=== PATIENT | female | born 1970 | race American Indian/Alaskan Native ===

== ENCOUNTER 2018-05-12 23:10 | Inpatient (IN) | payer OTHER, SELFPAY ==
[2018-05-12 23:59] LABS: Basophils # (Auto) 0.1 K/mm3 (0.0-0.1); Basophils % (Auto) 1.2 % (0.0-1.8); Eosinophils # (Auto) 0.1 K/mm3 (0.0-0.4); Eosinophils % (Auto) 1.3 % (0.0-4.3); Hematocrit 41.7 % (30.3-42.9); Hemoglobin 13.5 gm/dl (10.1-14.3); Lymphocytes # (Auto) 1.9 K/mm3 (1.2-5.4); Lymphocytes % (Auto) 41.4 % (13.4-35.0); Mean Corpuscular HGB Conc 32 % (30-34); Mean Corpuscular Volume 85 fl (79-97); Monocytes # (Auto) 0.7 K/mm3 (0.0-0.8); Monocytes % (Auto) 14.3 % (0.0-7.3); Platelet Count 221 K/mm3 (140-440); Red Blood Count 4.89 M/mm3 (3.65-5.03); Red Cell Distribution Width 14.5 % (13.2-15.2)
[2018-05-13 00:13] LABS: Bilirubin,Urine NEG (Negative); Blood,Urine NEG (Negative); Color,Urine Yellow (Yellow); Mucus,Urine FEW /HPF; Protein,Urine <15 mg/dL mg/dL (Negative); Urobilinogen,Urine < 2.0 mg/dL (<2.0)
[2018-05-13 00:15] LABS: Alanine Aminotransferase 391 units/L (7-56); Albumin 4.4 g/dL (3.9-5); BUN/Creatinine Ratio 17; Blood Urea Nitrogen 10 mg/dL (7-17); Calcium 9.6 mg/dL (8.4-10.2); Hemolysis Index 34
--- NOTE | 2018-05-13 02:55 | Emergency Department Report ---
ED Abdominal Pain HPI - General Chief Complaint: Abdominal Pain Stated Complaint: ABDOMINAL, BACK PAIN Time Seen by Provider: 05/13/18 02:20 Source: patient, family Mode of arrival: Ambulatory Limitations: No Limitations - History of Present Illness Initial Comments: This is a 89-year-old female here reported that she is having a gallbladder attack. She does not have GI doctor. She is that she has some nausea and vomited 1 hour. Pain is located to her right upper quadrant and radiated to her right back. Pain is 6 out of 10 and crampy. Similar pain with gallbladder attacks. No alleviating or exacerbating factors. Denies any fever or chills, urinary burning, frequency or urgency. She says she saw her doctor and she was given anti-inflammatory and they called him pain medicine for her and she is not able to get in until today. I discussed the patient that narcotics are not never called . She has a history of hypertension and gallstones. MD Complaint: abdominal pain Onset/Timin -: days(s) Location: RUQ Radiation: back (right upper back) Migration to: no migration Severity: moderate Severity scale (0 -10): 6 Quality: cramping (colicky), sharp Consistency: constant Improves With: nothing Worsens With: nothing Context: other (history of gallstones) Associated Symptoms: nausea, vomiting. denies: diarrhea, fever, chills, constipation, dysuria, hematemesis, hematochezia, melena, hematuria, anorexia, syncope Treatments Prior to Arrival: other (anti-inflammatory) - Related Data LMP (females 10-50): other (N' patient) Previous Rx's Medication Instructions Recorded Last Taken Type Labetalol [Normodyne TAB] 200 mg PO BID #60 tablet 07/20/13 Unknown Rx Lisinopril/Hydrochlorothiazide 1 each PO QDAY #30 tablet 07/20/13 Unknown Rx [Zestoretic 10-12.5 mg] Allergies Allergy/AdvReac Type Severity Reaction Status Date / Time Penicillins Allergy Hives Verified 07/20/13 04:47 ED Review of Systems ROS: Stated complaint: ABDOMINAL, BACK PAIN Other details as noted in HPI Constitutional: denies: chills, fever ENT: denies: ear pain, throat pain, dental pain, epistaxis, congestion Respiratory: denies: cough, shortness of breath, wheezing Cardiovascular: denies: chest pain, palpitations, dyspnea on exertion, edema, syncope Gastrointestinal: abdominal pain, nausea, vomiting. denies: diarrhea, constipation, hematemesis, melena, hematochezia Genitourinary: denies: urgency Musculoskeletal: back pain. denies: joint swelling, arthralgia, myalgia Skin: denies: rash Neurological: denies: headache, weakness, numbness, paresthesias, confusion, abnormal gait, vertigo ED Past Medical Hx - Past Medical History Previous Medical History?: Yes Hx Hypertension: Yes Additional medical history: gallstones - Surgical History Past Surgical History?: Yes Additional Surgical History: c- section - Family History Family history: hypertension - Social History Smoking Status: Never Smoker Substance Use Type: None - Medications Home Medications: Home Medications Medication Instructions Recorded Confirmed Last Taken Type Labetalol [Normodyne TAB] 200 mg PO BID #60 tablet 07/20/13 Unknown Rx Lisinopril/Hydrochlorothiazide 1 each PO QDAY #30 tablet 07/20/13 Unknown Rx [Zestoretic 10-12.5 mg] ED Physical Exam - General Limitations: No Limitations General appearance: alert, in no apparent distress - Head Head exam: Present: atraumatic, normocephalic, normal inspection - Eye Eye exam: Present: normal appearance, PERRL, EOMI Pupils: Present: normal accommodation - ENT ENT exam: Present: normal exam, normal orophraynx, mucous membranes moist - Neck Neck exam: Present: normal inspection, full ROM. Absent: tenderness, lymphadenopathy - Respiratory Respiratory exam: Present: normal lung sounds bilaterally. Absent: respiratory distress, chest wall tenderness - Cardiovascular Cardiovascular Exam: Present: regular rate, normal rhythm, normal heart sounds - GI/Abdominal GI/Abdominal exam: Present: soft, tenderness (tender to palpate a right upper quadrant), guarding, normal bowel sounds. Absent: distended, rebound, rigid, organomegaly, mass, bruit, pulsatile mass, hernia - Extremities Exam Extremities exam: Present: normal inspection, full ROM, normal capillary refill, other (No cce. + 2 pulses in all extremities, no neurovascular compromise). Absent: tenderness, pedal edema, joint swelling, calf tenderness - Back Exam Back exam: Present: normal inspection, full ROM, other (ambulates without any difficulties). Absent: tenderness, CVA tenderness (R), CVA tenderness (L), muscle spasm, paraspinal tenderness, vertebral tenderness, rash noted - Neurological Exam Neurological exam: Present: alert, oriented X3, normal gait, reflexes normal. Absent: motor sensory deficit - Psychiatric Psychiatric exam: Present: normal affect, anxious - Skin Skin exam: Present: warm, dry, intact, normal color. Absent: rash ED Course Vital Signs 05/12/18 05/13/18 05/13/18 23:32 04:18 04:57 Temperature 98.3 F 98.0 F Pulse Rate 87 88 97 H Respiratory 20 18 17 Rate Blood Pressure 179/123 Blood Pressure 159/113 187/107 [Left] O2 Sat by Pulse 100 99 98 Oximetry Vital Signs 05/12/18 05/13/18 23:32 04:18 Temperature 98.3 F Pulse Rate 87 88 Respiratory 20 18 Rate Blood Pressure 179/123 Blood Pressure 159/113 [Left] O2 Sat by Pulse 100 99 Oximetry Vital Signs 05/12/18 05/13/18 05/13/18 23:32 04:18 04:57 Temperature 98.3 F 98.0 F Pulse Rate 87 88 97 H Respiratory 20 18 17 Rate Blood Pressure 179/123 Blood Pressure 159/113 187/107 [Left] O2 Sat by Pulse 100 99 98 Oximetry - Reevaluation(s) Reevaluation #1: 05/13/18 04:18 Patient received Toradol 30 mg IV, Zofran 8 mg IV and 1 L of normal saline. She refused the morphine 4 mg IV because she said is still strong and a usually knocks her out. We agree on Ultram 50 mg by mouth which she will receive. Still awaiting in ultrasound results. Patient blood pressure is elevated at 156/113 and when she came in it was also elevated. Patient is on Cardizem and she said doctor Yari added losartan which she has not started as yet. Patient will receive hydralazine and retracted blood pressure. Reevaluation #2: 05/13/18 04:44 Dr. Mckenna Guevara and awaiting call back regarding patient ultrasound results. She has multiple stones in her gallbladder with cholecystitis. Spoke with patient in detail regarding ultrasound results and her laboratory results and possibility of her having surgery and be admitted. She is to be nothing by mouth Reevaluation #3: 05/13/18 04:[address] Andres and he wants patient to be admitted to hospitalist and he will see patient later today. Reevaluation #4: 05/13/18 04:[address] Drake who is the hospitalist and he will admit patient and patient to be seen by Dr. Andres Reevaluation #5: 05/13/18 05:28 Blood pressure is 187/107 and other vital signs are stable. Patient is very a nxious about his health and diagnosis. She said they usually give her some Ativan by mouth. Patient ordered Ativan 1 mg by mouth for anxiety. Her pain is better and she is awaiting admission to floor. ED Medical Decision Making - Lab Data Result diagrams: 05/12/18 23:40 05/12/18 23:40 Lab Results 05/12/18 05/12/18 05/12/18 Range/Units 23:40 23:40 23:40 WBC 4.6 (4.5-11.0) K/mm3 RBC 4.89 (3.65-5.03) M/mm3 Hgb 13.5 (10.1-14.3) gm/dl Hct 41.7 (30.3-42.9) % MCV 85 (79-97) fl MCH 28 (28-32) pg MCHC 32 (30-34) % RDW 14.5 (13.2-15.2) % Plt Count 221 (140-440) K/mm3 Lymph % (Auto) 41.4 H (13.4-35.0) % [place] % (Auto) 14.3 H (0.0-7.3) % Eos % (Auto) 1.3 (0.0-4.3) % Baso % (Auto) 1.2 (0.0-1.8) % Lymph # 1.9 (1.2-5.4) K/mm3 [place] # 0.7 (0.0-0.8) K/mm3 Eos # 0.1 (0.0-0.4) K/mm3 Baso # 0.1 (0.0-0.1) K/mm3 Seg Neutrophils % 41.8 (40.0-70.0) % Seg Neutrophils # 1.9 (1.8-7.7) K/mm3 Sodium 134 L (137-145) mmol/L Potassium 3.7 (3.6-5.0) mmol/L Chloride 95.9 L (98-107) mmol/L Carbon Dioxide 24 (22-30) mmol/L Anion Gap 18 mmol/L BUN 10 (7-17) mg/dL Creatinine 0.6 L (0.7-1.2) mg/dL Estimated GFR > 60 ml/min BUN/Creatinine Ratio 17 % Glucose 101 H (65-100) mg/dL Calcium 9.6 (8.4-10.2) mg/dL Total Bilirubin 5.10 H (0.1-1.2) mg/dL AST 298 H (5-40) units/L ALT 391 H (7-56) units/L Alkaline Phosphatase 250 H (35-129) units/L Total Protein 8.1 (6.3-8.2) g/dL Albumin 4.4 (3.9-5) g/dL Albumin/Globulin Ratio 1.2 % Lipase (13-60) units/L HCG, Qual Negative (Negative) Urine Color (Yellow) Urine Turbidity (Clear) Urine pH (5.0-7.0) Ur Specific [place] (1.003-1.030) Urine Protein (Negative) mg/dL Urine Glucose (UA) (Negative) mg/dL Urine Ketones (Negative) mg/dL Urine Blood (Negative) Urine Nitrite (Negative) Urine Bilirubin (Negative) Urine Urobilinogen (<2.0) mg/dL Ur Leukocyte Esterase (Negative) Urine WBC (Auto) (0.0-6.0) /HPF Urine RBC (Auto) (0.0-6.0) /HPF U Epithel Cells (Auto) (0-13.0) /HPF Urine Mucus /HPF 05/12/18 05/13/18 Range/Units 23:49 03:00 WBC (4.5-11.0) K/mm3 RBC (3.65-5.03) M/mm3 Hgb (10.1-14.3) gm/dl Hct (30.3-42.9) % MCV (79-97) fl MCH (28-32) pg MCHC (30-34) % RDW (13.2-15.2) % Plt Count (140-440) K/mm3 Lymph % (Auto) (13.4-35.0) % [place] % (Auto) (0.0-7.3) % Eos % (Auto) (0.0-4.3) % Baso % (Auto) (0.0-1.8) % Lymph # (1.2-5.4) K/mm3 [place] # (0.0-0.8) K/mm3 Eos # (0.0-0.4) K/mm3 Baso # (0.0-0.1) K/mm3 Seg Neutrophils % (40.0-70.0) % Seg Neutrophils # (1.8-7.7) K/mm3 Sodium (137-145) mmol/L Potassium (3.6-5.0) mmol/L Chloride (98-107) mmol/L Carbon Dioxide (22-30) mmol/L Anion Gap mmol/L BUN (7-17) mg/dL Creatinine (0.7-1.2) mg/dL Estimated GFR ml/min BUN/Creatinine Ratio % Glucose (65-100) mg/dL Calcium (8.4-10.2) mg/dL Total Bilirubin (0.1-1.2) mg/dL AST (5-40) units/L ALT (7-56) units/L Alkaline Phosphatase (35-129) units/L Total Protein (6.3-8.2) g/dL Albumin (3.9-5) g/dL Albumin/Globulin Ratio % Lipase 21 (13-60) units/L HCG, Qual (Negative) Urine Color Yellow (Yellow) Urine Turbidity Clear (Clear) Urine pH 6.0 (5.0-7.0) Ur Specific [place] 1.002 L (1.003-1.030) Urine Protein <15 mg/dl (Negative) mg/dL Urine Glucose (UA) Neg (Negative) mg/dL Urine Ketones Neg (Negative) mg/dL Urine Blood Neg (Negative) Urine Nitrite Neg (Negative) Urine Bilirubin Neg (Negative) Urine Urobilinogen < 2.0 (<2.0) mg/dL Ur Leukocyte Esterase Neg (Negative) Urine WBC (Auto) 1.0 (0.0-6.0) /HPF Urine RBC (Auto) 1.0 (0.0-6.0) /HPF U Epithel Cells (Auto) 2.0 (0-13.0) /HPF Urine Mucus Few /HPF Blood cultures pending - Radiology Data Radiology results: report reviewed had right upper quadrant limited abdominal ultrasound which was dictated by radiologist and report reviewed by myself. Please see details below. Findings [facility] [address] [place] [address] Ultrasound Report Signed Patient: DREAD RODRIGUEZ MR#: [id number] : 1970 Acct:[id number] Age/Sex: 47 / F ADM Date: 05/12/18 Loc: ED Attending Dr: Ordering Physician: SELWYN QUIROZ Date of Service: 05/13/18 Procedure(s): US abdomen limited Accession Number(s): [id number] cc: SELWYN QUIROZ FINAL REPORT EXAM: US ABDOMEN LIMITED HISTORY: right upper quadrant abdominal pain COMPARISONS: None FINDINGS: Grayscale and color Doppler ultrasound evaluation of the right upper abdomen Liver is normal in size and contour. Hepatic parenchymal echogenicity is diffusely increased. No parenchymal lesion identified. No intra or extrahepatic biliary ductal dilatation. The common duct measures approximately 8 millimeters in caliber. The gallbladder is distended and contains multiple echogenic shadowing stones. Gallbladder wall measures approximately 3 millimeters in thickness. No definite pericholecystic edema. Imaged portion of the pancreatic head is sonographically unremarkable. The remainder of the pancreas is not well seen secondary to overlying bowel gas. Imaged portions of the aorta and inferior vena cava are unremarkable. No abdominal ascites or free fluid in Fernandes's pouch. The right kidney measures up to 9.8 cm in length and is without hydronephrosis or echogenic shadowing foci to suggest nephrolithiasis. IMPRESSION: Distended gallbladder is full of stones with equivocal wall thickening, suggestive of cholecystitis. If patient's clinical picture is equivocal, consider nuclear medicine hepatobiliary scan for more specific evaluation. Hepatic steatosis. Transcribed By: MB Dictated By: IMELDA VILLANUEVA MD Electronically Authenticated By: IMELDA VILLANUEVA MD Signed Date/Time: 05/13/18405 DD/ 7 TD/TT: 05/13/18407 - Medical Decision Making This is a 47-year-old female here report that she has gallstones and she has attacks and she she has evident attack today. Physician's evidence of nausea and vomiting. Patient to the popliteal right upper quadrant extending to the epigastric area and also reports that pain is irritating to her upper back on the right side. Patient was started on IV fluid and given Zofran 8 mg IV, Toradol 30 mg IV and she refused morphine because she said it was too strong for. Later she agreed upon taken tramadol. Her blood pressure is also elevated 2 while in emergency room and patient sees Dr. Bain and blood pressure medication includes Cardizem and losartan was added today per patient. Patient was given hydralazine 10 mg IV for elevated blood pressure. Patient blood pressure still elevated and she is very anxious. Patient and will be given Ativan 1 mg by mouth and will recheck blood pressure and managed appropriately. - Differential Diagnosis gallbladder disease, pancreatitis, UTI, liver disease, appendicitis Critical care attestation.: If time is entered above; I have spent that time in minutes in the direct care of this critically ill patient, excluding procedure time. ED Disposition Clinical Impression: Renal colic, Anxiety about health, Elevated blood pressure reading with diagno sis of hypertension Cholecystitis with cholelithiasis Qualifiers: Cholelithiasis location: gallbladder Cholecystitis acuity: unspecified acuity Biliary obstruction: without biliary obstruction Qualified Code(s): K80.10 - Calculus of gallbladder with chronic cholecystitis without obstruction Disposition: -09 OP ADMIT IP TO THIS HOSP Is pt being admited?: Yes Does the pt Need Aspirin: No Condition: Stable Instructions: Hypertension (ED) Referrals: FRANCINE ENCINAS MD [Primary Care Provider] - 3-5 Days
[2018-05-13] MEDS ORDERED: NACL 0.9% 1000 ML 1,000 ML IV ONE (03:01)
[2018-05-13] MEDS ORDERED: ZOFRAN IV ONE (03:01)
[2018-05-13] MEDS ORDERED: BENADRYL IV ONE (03:01)
[2018-05-13] MEDS ORDERED: TORADOL IVP ONE (03:01)
[2018-05-13] MEDS ORDERED: MORPHINE IV ONE (03:06)
--- NOTE | 2018-05-13 04:06 | Ultrasound Report ---
FINAL REPORT EXAM: US ABDOMEN LIMITED HISTORY: right upper quadrant abdominal pain COMPARISONS: None FINDINGS: Grayscale and color Doppler ultrasound evaluation of the right upper abdomen Liver is normal in size and contour. Hepatic parenchymal echogenicity is diffusely increased. No pare nchymal lesion identified. No intra or extrahepatic biliary ductal dilatation. The common duct measur es approximately 8 millimeters in caliber. The gallbladder is distended and contains multiple echogenic shadowing stones. Gallbladder wall measu res approximately 3 millimeters in thickness. No definite pericholecystic edema. Imaged portion of the pancreatic head is sonographically unremarkable. The remainder of the pancreas is not well seen secondary to overlying bowel gas. Imaged portions of the aorta and inferior vena cav a are unremarkable. No abdominal ascites or free fluid in Fernandes's pouch. The right kidney measures up to 9.8 cm in leilani gth and is without hydronephrosis or echogenic shadowing foci to suggest nephrolithiasis. IMPRESSION: Distended gallbladder is full of stones with equivocal wall thickening, suggestive of cholecystitis. If patient's clinical picture is equivocal, consider nuclear medicine hepatobiliary scan for more spe cific evaluation. Hepatic steatosis.
[2018-05-13] MEDS ORDERED: ULTRAM PO ONE (04:20)
[2018-05-13] MEDS ORDERED: APRESOLINE IV ONE (04:20)
[2018-05-13] MEDS ORDERED: LEVAQUIN 750MG/150ML 750 MG/150 ML BAG IV ONE (04:46)
[2018-05-13] MEDS ORDERED: ATIVAN PO ONE (05:29)
[2018-05-13] MEDS ORDERED: DILAUDID IV PRN (05:55)
[2018-05-13] MEDS ORDERED: ZOFRAN IV PRN (05:55)
[2018-05-13] MEDS ORDERED: TYLENOL PR PRN (06:05)
[2018-05-13] MEDS ORDERED: APRESOLINE IV PRN (06:09)
[2018-05-13] MEDS ORDERED: NACL 0.9% 1000 ML 1,000 ML IV SCH (07:00)
--- NOTE | 2018-05-13 07:00 | History and Physical Report ---
CHIEF COMPLAINT: Abdominal pain. HISTORY OF PRESENT ILLNESS: The patient is a 47-year-old who says she has history of gallstones going on for some time that started having abdominal pain that started about 2 days ago associated with nausea and vomiting. Pain is located in the right upper quadrant abdominal area and radiates to the right side on the back. The pain is about 6/10. The patient denies history of fever and chills. Denied history of any urinary symptoms, presented for evaluation. PAST MEDICAL HISTORY: Pertinent for hypertension, gallstones, and also anxiety disorder. PAST SURGICAL HISTORY: Pertinent for C-sections. FAMILY HISTORY: Pertinent for hypertension. SOCIAL HISTORY: The patient does not smoke, does not drink alcohol, and does not use illicit drugs. MEDICATIONS: The patient is on labetalol 200 mg by mouth twice daily, Zestoretic 10/12.5 mg 1 by mouth every day. ALLERGIES: THE PATIENT IS ALLERGIC TO PENICILLIN. REVIEW OF SYSTEMS: CONSTITUTIONAL: There is no fever, no chills, no diaphoresis. HEENT: There is no headache or sore throat. CARDIOVASCULAR SYSTEM: There is no chest pain or orthopnea. RESPIRATORY SYSTEM: There is no shortness of breath or cough. GASTROINTESTINAL SYSTEM: Abdominal pain present. Nausea and vomiting present. No diarrhea, no constipation. NEUROLOGICAL SYSTEM: There is no numbness, no dizziness, no altered mental status. MUSCULOSKELETAL SYSTEM: There is no joint pain or swelling. DERMATOLOGICAL SYSTEM: There is no skin rash or itching. GENITOURINARY SYSTEM: There is no dysuria, hematuria, or flank pain. Rest of system review is normal. PHYSICAL EXAMINATION: GENERAL: At the time of exam, the patient was found to be alert, oriented x 3, and not in acute distress. VITAL SIGNS: At the initial time of presentation show temperature of 98.3 degrees Fahrenheit, pulse of 87, respirations 20, blood pressure 179/123, O2 sat of 100% on room air. HEENT: Showed pupils to be equal, round, and reactive to light and accommodating. Extraocular muscles are intact. NECK: Supple with no JVD or carotid bruits. CARDIOVASCULAR SYSTEM: Showed normal first and second heart sounds with no gallops or murmur. RESPIRATORY SYSTEM: Show good air entry on both sides of the lungs with no abnormal breath sounds. GASTROINTESTINAL SYSTEM: Show abdomen to be full, soft with mild tenderness in the right upper quadrant area with no rigidity, no rebound tenderness. No organomegaly was elicited. NEUROLOGIC SYSTEM: Show no focal deficit. MUSCULOSKELETAL SYSTEM: Show no joint swelling or tenderness. DERMATOLOGICAL SYSTEM: Show no skin rash. GENITOURINARY SYSTEM: Show no costovertebral jarrett tenderness. PERTINENT LABORATORY DATA AND IMAGING STUDIES: The patient had abdominal ultrasound done that shows gallstone with evidence suggestive of cholecystitis. Lab results: The patient has CBC done with normal white count, normal hemoglobin, and normal hematocrit with CBC differential showing elevated lymphocyte count of 41.4 and 14.3. The patient's chemistry show low sodium level of 134 with low chloride level of 95.9. The patient's liver transaminases show high AST of 298 with high ALT of 391 and alkaline phosphatase is high with a value of 250. The patient's urinalysis show unremarkable result. DIAGNOSIS: Gallstone cholecystitis. PLAN OF ACTION: 1. The patient will be admitted to medical surgical addison. 2. The patient will continue IV Levaquin 750 mg daily. 3. The patient will continue general surgical consult with Dr. Anderson Andres for management of gallstones cholecystitis. 4. The patient will be n.p.o. until reviewed by the surgeon. 5. The patient will be on IV Dilaudid 0.5 mg every 4 hours as needed for pain and IV Zofran 4 mg every 8 hours for nausea and vomiting. 6. The patient will be on IV hydralazine 20 mg every 4 hours as needed for blood pressure of 160/90 or more. 7. The patient will be on Tylenol 650 mg by rectum every 4 hours for fever and headache and will be on IV normal saline at 125 mL an hour. JOB# [id number] OCN/NTS
--- NOTE | 2018-05-13 07:31 | Progress Note ---
Assessment and Plan Assessment and plan: Patient is a 47 yo woman with a history of hypertension who presented to [facility] ED with abdominal pains. She was found to have cholecysitis on Abdominal US * US Abdomen Limited RUQ IMPRESSION: Distended gallbladder is full of stones with equivocal wall thickening, suggestive of cholecystitis. If patient's clinical picture is equivocal, consider nuclear medicine hepatobiliary scan for more specific evaluation. Hepatic steatosis. -Acute cholecystitis: npo, ivf, iv abx and Gen Surgery consulted -Obesity, bmi 33: Lifestyle modification after this illness -Fatty liver, most likey related to obesity: counseling and education -Hyponatremia with dehydration: treat with ivf, repeat bmp in am -DVT prophylaxis: added sq heparin tomorrow Looking back at previous medical records, I saw Dr. Greenberg name so I asked patient who is her PCP and she confirmed Dr. Greenberg, who admits his own patient. I reached out to him and he wants care to be transferred. prolonged inpatient services 31 minutes History Interval history: Patient was seen and examined. Follow-up on current diagnosis of abd pains. Overnight uneventful. Patient denies any chest pain, shortness breath, or severe headaches. Imaging, nursing note, chart, labs and old chart reviewed. Discussed with patient. Hospitalist Physical - Physical exam Narrative exam: Gen: WDWN, NAD, Awake, Alert, Orientated x 3,bmi 33.1 HEENT: NCAT, EOMI, PERRL, OP Clear Neck: supple, no adenopathy, no thyromegaly, no JVD CVS/Heart: RRR, normal S1S2, pulses present bilaterally Chest/Lungs: CTA B, Symmetrical chest expansion, good air entry bilaterally GI/Abdomen: soft, ruq tender, good bowel sounds, no guarding or rebound /Bladder: no suprapubic tenderness, no CVA or paraspinal tenderness Extermity/Skin: no c/c/e, no obvious rash MSK: FROM x 4 Neuro: CN 2-12 grossly intact, no new focal deficits Psych: calm - Constitutional Vitals: Temp Pulse Resp BP Pulse Ox 98.7 F 106 H 17 153/95 100 05/13/18 06:37 05/13/18 06:37 05/13/18 06:37 05/13/18 06:37 05/13/18 06:37 Results - Labs CBC & Chem 7: 05/12/18 23:40 05/12/18 23:40 Labs: Laboratory Last Values WBC 4.6 K/mm3 (4.5-11.0) 05/12/18 23:40 RBC 4.89 M/mm3 (3.65-5.03) 05/12/18 23:40 Hgb 13.5 gm/dl (10.1-14.3) 05/12/18 23:40 Hct 41.7 % (30.3-42.9) 05/12/18 23:40 MCV 85 fl (79-97) 05/12/18 23:40 MCH 28 pg (28-32) 05/12/18 23:40 MCHC 32 % (30-34) 05/12/18 23:40 RDW 14.5 % (13.2-15.2) 05/12/18 23:40 Plt Count 221 K/mm3 (140-440) 05/12/18 23:40 Lymph % (Auto) 41.4 % (13.4-35.0) H 05/12/18 23:40 [place] % (Auto) 14.3 % (0.0-7.3) H 05/12/18 23:40 Eos % (Auto) 1.3 % (0.0-4.3) 05/12/18 23:40 Baso % (Auto) 1.2 % (0.0-1.8) 05/12/18 23:40 Lymph # 1.9 K/mm3 (1.2-5.4) 05/12/18 23:40 [place] # 0.7 K/mm3 (0.0-0.8) 05/12/18 23:40 Eos # 0.1 K/mm3 (0.0-0.4) 05/12/18 23:40 Baso # 0.1 K/mm3 (0.0-0.1) 05/12/18 23:40 Seg Neutrophils % 41.8 % (40.0-70.0) 05/12/18 23:40 Seg Neutrophils # 1.9 K/mm3 (1.8-7.7) 05/12/18 23:40 Sodium 134 mmol/L (137-145) L 05/12/18 23:40 Potassium 3.7 mmol/L (3.6-5.0) 05/12/18 23:40 Chloride 95.9 mmol/L (98-107) L 05/12/18 23:40 Carbon Dioxide 24 mmol/L (22-30) 05/12/18 23:40 Anion Gap 18 mmol/L 05/12/18 23:40 BUN 10 mg/dL (7-17) 05/12/18 23:40 Creatinine 0.6 mg/dL (0.7-1.2) L 05/12/18 23:40 Estimated GFR > 60 ml/min 05/12/18 23:40 BUN/Creatinine Ratio 17 % 05/12/18 23:40 Glucose 101 mg/dL (65-100) H 05/12/18 23:40 Calcium 9.6 mg/dL (8.4-10.2) 05/12/18 23:40 Total Bilirubin 5.10 mg/dL (0.1-1.2) H 05/12/18 23:40 AST 298 units/L (5-40) H 05/12/18 23:40 ALT 391 units/L (7-56) H 05/12/18 23:40 Alkaline Phosphatase 250 units/L (35-129) H 05/12/18 23:40 Total Protein 8.1 g/dL (6.3-8.2) 05/12/18 23:40 Albumin 4.4 g/dL (3.9-5) 05/12/18 23:40 Albumin/Globulin Ratio 1.2 % 05/12/18 23:40 Lipase 21 units/L (13-60) 05/13/18 03:00 HCG, Qual Negative (Negative) 05/12/18 23:40 Urine Color Yellow (Yellow) 05/12/18 23:49 Urine Turbidity Clear (Clear) 05/12/18 23:49 Urine pH 6.0 (5.0-7.0) 05/12/18 23:49 Ur Specific [place] 1.002 (1.003-1.030) L 05/12/18 23:49 Urine Protein <15 mg/dl mg/dL (Negative) 05/12/18 23:49 Urine Glucose (UA) Neg mg/dL (Negative) 05/12/18 23:49 Urine Ketones Neg mg/dL (Negative) 05/12/18 23:49 Urine Blood Neg (Negative) 05/12/18 23:49 Urine Nitrite Neg (Negative) 05/12/18 23:49 Urine Bilirubin Neg (Negative) 05/12/18 23:49 Urine Urobilinogen < 2.0 mg/dL (<2.0) 05/12/18 23:49 Ur Leukocyte Esterase Neg (Negative) 05/12/18 23:49 Urine WBC (Auto) 1.0 /HPF (0.0-6.0) 05/12/18 23:49 Urine RBC (Auto) 1.0 /HPF (0.0-6.0) 05/12/18 23:49 U Epithel Cells (Auto) 2.0 /HPF (0-13.0) 05/12/18 23:49 Urine Mucus Few /HPF 05/12/18 23:49
--- NOTE | 2018-05-13 09:07 | Event Note ---
Date: 05/13/18 Was informed of my patient who was admitted for Acute Cholecyctitis. Will be glad to take over care.
--- NOTE | 2018-05-13 10:28 | Consultation ---
History of Present Illness Consult date: 05/13/18 Reason for consult: abdominal pain Requesting physician: VIVIAN SHARPE Chief complaint: severe RUQ pain - History of present illness History of present illness: 47yo F with acute RUQ pain presented to the emergency room last night. Pain began after a meal and radiated right side to the back. Positive nausea. No fevers or chills. This has happened before. She is known to have gallstones. General surgery was consult for possible cholecystitis. Patient reports now that pain is completely resolved. There is no nausea or vomiting. She is interested in having her gallbladder removed. Past History Past Medical History: hypertension, other (anxiety) Past Surgical History: (no complications) Social history: denies: smoking, alcohol abuse Family history: no significant family history Medications and Allergies Allergies Allergy/AdvReac Type Severity Reaction Status Date / Time Penicillins Allergy Hives Verified 07/20/13 04:47 Home Medications Medication Instructions Recorded Confirmed Last Taken Type dilTIAZem 60 mg PO BID 05/13/18 05/13/18 05/12/18 23:30 History 60 Active Meds: Active Medications Acetaminophen (Tylenol) 650 mg ID Q4H PRN PRN Reason: Fever >101 Heparin Sodium (Porcine) (Heparin) 5,000 unit SUB-Q Q12HR [facility] Hydralazine HCl (Apresoline) 20 mg IV Q4H PRN PRN Reason: Blood Pressure Hydromorphone HCl (Dilaudid) 0.5 mg IV Q4HR PRN PRN Reason: Pain, Moderate (4-6) Sodium Chloride (Nacl 0.9% 1000 Ml) 1,000 mls @ 125 mls/hr IV DIRECT SOM Ondansetron HCl (Zofran) 4 mg IV Q8H PRN PRN Reason: Nausea And Vomiting Review of Systems - Constitutional no fever, no chills, no chronic pain - Cardiovascular no chest pain, no shortness of breath - Respiratory no cough - Gastrointestinal abdominal pain, nausea, dyspepsia/bloating (this happens 1 week before her menstrual period), no vomiting, no diarrhea, no constipation, no change in bowel habits, no hematemesis, no coffee ground emesis, no BRBPR, no melena, no hematochezia, no heartburn, no indigestion - Genitourinary Genitourinary: no pelvic pain, no dysuria - Muskuloskeletal no low back pain - Integumentary no pruritis, no jaundice Exam Vital Signs Temp Pulse Resp BP Pulse Ox 98.3 F 87 20 179/123 100 05/12/18 23:32 05/12/18 23:32 05/12/18 23:32 05/12/18 23:32 05/12/18 23:32 - General physical appearance Positive: no distress, no pain, other (pleasant. appears healthy) - Eyes Positive: normal occular movement. Negative: icteric - Respiratory Positive: normal expansion, normal respiratory effort, clear to auscultation - Cardiovascular Rhythm: regular - Abdomen Abdomen: Present: soft, bowel sounds hypoactive, distended (mild). Absent: tender, masses, rebound, guarding, rigid, wound - Integumentary no rash, no growths, no abnormal pigmentation - Neurologic Neurologic: alert and oriented to time, place and person, motor strength and sensation are grossly intact - Psychiatric Psychiatric: appropriate mood/affect, intact judgment & insight Results - Labs 05/12/18 23:40 05/12/18 23:40 Abnormal lab results 05/12/18 05/12/18 05/12/18 Range/Units 23:40 23:40 23:49 Lymph % (Auto) 41.4 H (13.4-35.0) % [place] % (Auto) 14.3 H (0.0-7.3) % Sodium 134 L (137-145) mmol/L Chloride 95.9 L (98-107) mmol/L Creatinine 0.6 L (0.7-1.2) mg/dL Glucose 101 H (65-100) mg/dL Total Bilirubin 5.10 H (0.1-1.2) mg/dL AST 298 H (5-40) units/L ALT 391 H (7-56) units/L Alkaline Phosphatase 250 H (35-129) units/L Ur Specific [place] 1.002 L (1.003-1.030) Diabetes panel 05/12/18 Range/Units 23:40 Sodium 134 L (137-145) mmol/L Potassium 3.7 (3.6-5.0) mmol/L Chloride 95.9 L (98-107) mmol/L Carbon Dioxide 24 (22-30) mmol/L BUN 10 (7-17) mg/dL Creatinine 0.6 L (0.7-1.2) mg/dL Glucose 101 H (65-100) mg/dL Calcium 9.6 (8.4-10.2) mg/dL AST 298 H (5-40) units/L ALT 391 H (7-56) units/L Alkaline Phosphatase 250 H (35-129) units/L Total Protein 8.1 (6.3-8.2) g/dL Albumin 4.4 (3.9-5) g/dL Calcium panel 05/12/18 Range/Units 23:40 Calcium 9.6 (8.4-10.2) mg/dL Albumin 4.4 (3.9-5) g/dL Pituitary panel 05/12/18 Range/Units 23:40 Sodium 134 L (137-145) mmol/L Potassium 3.7 (3.6-5.0) mmol/L Chloride 95.9 L (98-107) mmol/L Carbon Dioxide 24 (22-30) mmol/L BUN 10 (7-17) mg/dL Creatinine 0.6 L (0.7-1.2) mg/dL Glucose 101 H (65-100) mg/dL Calcium 9.6 (8.4-10.2) mg/dL Adrenal panel 05/12/18 Range/Units 23:40 Sodium 134 L (137-145) mmol/L Potassium 3.7 (3.6-5.0) mmol/L Chloride 95.9 L (98-107) mmol/L Carbon Dioxide 24 (22-30) mmol/L BUN 10 (7-17) mg/dL Creatinine 0.6 L (0.7-1.2) mg/dL Glucose 101 H (65-100) mg/dL Calcium 9.6 (8.4-10.2) mg/dL Total Bilirubin 5.10 H (0.1-1.2) mg/dL AST 298 H (5-40) units/L ALT 391 H (7-56) units/L Alkaline Phosphatase 250 H (35-129) units/L Total Protein 8.1 (6.3-8.2) g/dL Albumin 4.4 (3.9-5) g/dL - Imaging US - abdomen: report reviewed, image reviewed Assessment and Plan - Patient Problems (1) Choledocholithiasis with obstruction Current Visit: Yes Status: Acute Qualifiers: Cholecystitis presence: without cholecystitis Qualified Code(s): K80.51 - C alculus of bile duct without cholangitis or cholecystitis with obstruction Plan to address problem: Pt stable. Based on her history, exam, ultrasound findings, and labs, I do not think she had cholecystitis. I think she had a common duct obstruction that has cleared as she is now asymptomatic. This appears to be the same thing that has happened to her in the past. We will repeat the LFTs this morning to confirm that they are coming down with the presumed passage of a stone. If that is the case, then she would like to arrange for an outpatient cholecystectomy. I think that is reasonable. I will bring back the consent form and patient information on laparoscopic cholecystectomy after her lab results are available. All questions were answered. She was appreciative. I will start her on a liquid diet as well. Please call with questions. time=45min
[2018-05-13 12:16] LABS: Albumin 4.3 g/dL (3.9-5); Bilirubin,Direct 2.8 mg/dL (0-0.2)
--- NOTE | 2018-05-13 13:52 | Event Note ---
Date: 05/13/18 Pt would like to go home. Her symptoms have resolved. The T.bili is lower. I expect that will continue as I believe the stone has passed. Discussed with Dr. Greenberg. He was ok with this plan. He will discharge the patient. We will go ahead and schedule her for an out-pt lap paola with IOC. Consent has been obtained.
[2018-05-13] MEDS: CARDIZEM CD PO SCH (19:00)
[2018-05-13] MEDS: COZAAR PO SCH (19:14)
[2018-05-14] MEDS ORDERED: NORMODYNE IV ONE ×2 (00:56→06:00)
[2018-05-14] MEDS ORDERED: TYLENOL PO PRN (00:58)
[2018-05-14 05:27] VITALS: BP 154/100
--- NOTE | 2018-05-14 08:44 | Progress Note ---
Assessment and Plan - Patient Problems (1) Choledocholithiasis with obstruction Current Visit: Yes Status: Acute Qualifiers: Cholecystitis presence: without cholecystitis Qualified Code(s): K80.51 - Calculus of bile duct without cholangitis or cholecystitis with obstruction Plan to address problem: Pt stable. Pt stayed due to BP issues. Will advance diet and recheck LFTs as she is still here. If continuing to trend down, will continue with out-pt surgery plan. If there is concern, then will re-evaluate plan. Pt in agreement. Await LFTs for today. Advance to full liquid diet. Please call with questions. time=10min Subjective Date of service: 05/14/18 Patient Reports: Positive: tolerating liquids well, nausea, vomiting, other (Pt reports that she was kept yesterday due to elevated BP issues. No abdominal pain. Had N/V due to excess water intake. Would like to have more to eat. ) Objective Vital Signs - 12hr 05/13/18 05/13/18 05/13/18 20:50 21:44 22:31 Temperature 98.5 F Pulse Rate 119 H Respiratory 18 16 Rate Blood Pressure 144/104 142/86 O2 Sat by Pulse 98 Oximetry 05/14/18 05/14/18 05/14/18 01:13 04:59 05:29 Temperature 98.3 F Pulse Rate 115 H 115 H Respiratory 18 16 Rate Blood Pressure 154/100 154/100 O2 Sat by Pulse 99 Oximetry - General physical appearance no distress, no pain - Eyes normal occular movement, other (no scleral icterus) - Respiratory normal expansion, normal respiratory effort - Abdomen soft, not tender, not distended, not rebound, not guarding, not rigid - Integumentary no rash, no growths, no abnormal pigmentation - Psychiatric oriented to time, oriented to person, oriented to place, speech is normal, mem ory intact - Labs 05/12/18 23:40 05/12/18 23:40 Diabetes panel 05/13/18 Range/Units 03:00 AST 306 H (5-40) units/L ALT 390 H (7-56) units/L Alkaline Phosphatase 253 H (35-129) units/L Total Protein 8.2 (6.3-8.2) g/dL Albumin 4.3 (3.9-5) g/dL Calcium panel 05/13/18 Range/Units 03:00 Albumin 4.3 (3.9-5) g/dL Adrenal panel 05/13/18 Range/Units 03:00 Total Bilirubin 4.60 H (0.1-1.2) mg/dL AST 306 H (5-40) units/L ALT 390 H (7-56) units/L Alkaline Phosphatase 253 H (35-129) units/L Total Protein 8.2 (6.3-8.2) g/dL Albumin 4.3 (3.9-5) g/dL
--- NOTE | 2018-05-14 09:33 | Discharge Summary ---
Providers - Providers Date of Admission: 05/13/18 05:53 Date of discharge: 05/14/18 Attending physician: FRANCINE ENCINAS 05/13/18 04:56 Consult to Physician [CONS] Stat Comment: Aniya spoke with Dr. Orozco @ [phone] Consulting Provider: LARRY OROZCO Physician Instructions: hospitalist to admit patient and he will see PT Reason For Exam: cholecystitis with cholelithiasis Primary care physician: FRANCINE ENCINAS Hospitalization Condition: Stable Pertinent studies: Abdominal ultrasound showed multiple gallbladder stones with evidence of cho lecystitis Procedures: None Hospital course: This is a 89-year-old female here reported that she is having a gallbladder attack. She does not have GI doctor. She is that she has some nausea and vomited 1 hour. Pain is located to her right upper quadrant and radiated to her right back. Pain is 6 out of 10 and crampy. Similar pain with gallbladder attacks. No alleviating or exacerbating factors. Denies any fever or chills, urinary burning, frequency or urgency. She says she saw her doctor and she was given anti-inflammatory and they called him pain medicine for her and she is not able to get in until today. I discussed the patient that narcotics are not never called . She has a history of hypertension and gallstones. On admission gallbladder ultrasound showed multiple gallstones with evidence of acute cholecystitis. Surgical consult was obtained. Pain had resolved. Patient has no more nausea or vomiting. Tolerating regular diet. The surgeon and the patient elected to have the patient discharged and returned to the surgeon's office on outpatient basis for an elective cholecystectomy. Patient is being discharged today to follow up with the surgeon in 1 week and primary care physician in 3-5 days. Condition is satisfactory. Disposition: - TO HOME OR SELFCARE Time spent for discharge: 35 mins - Discharge Diagnoses (1) Anxiety about health Status: Acute (2) Cholecystitis with cholelithiasis Status: Acute Qualifiers: Cholelithiasis location: gallbladder Cholecystitis acuity: unspecified acuity Biliary obstruction: without biliary obstruction Qualified Code(s): K80.10 - Calculus of gallbladder with chronic cholecystitis without obstruction (3) Elevated blood pressure reading with diagnosis of hypertension Status: Acute Core Measure Documentation - Palliative Care Palliative Care/ Comfort Measures: Not Applicable - Core Measures Any of the following diagnoses?: none Exam - Physical Exam Narrative exam: Constitutional: Well-nourished well-developed. In no distress Head: Normocephalic atraumatic Eyes: Pupils are equal round and reactive to light Nose: No enlarged turbinates, no septal deviation. Mouth: Moist mucous membranes. Neck: Supple no thyromegaly. No bruit. No JVD Heart: Regular rate and rhythm, S1-S2 normal. No rubs murmurs or gallop Lungs: Clear to auscultation bilaterally. no rales or rhonchi Abdomen: Soft, nontender. Bowel sound are present. Extremities: No edema, no cyanosis, no clubbing. Neuro: Alert oriented Oriented x3. No focal sensory or motor deficit. Skin: No rashes or hyperpigmented spots Musculoskeletal system: No joint pain or swelling Hematological: No petechia or subcutanous hemorrhages. Immunological: No multiple septic spots on the skin Lymphatic: No generalized lymphadenopathy Psychiatry: Euthymic. Calm. - Constitutional Vitals: Temp Pulse Resp BP Pulse Ox 98.3 F 115 H 16 154/100 99 05/14/18 04:59 05/14/18 05:29 05/14/18 04:59 05/14/18 05:29 05/14/18 04:59 Plan Activity: advance as tolerated Weight Bearing Status: Weight Bear as Tolerated Diet: low salt Follow up with: FRANCINE ENCINAS MD [Primary Care Provider] - 3-5 Days Prescriptions: RX: dilTIAZem CD [Cardizem CD] 180 mg PO QDAY #30 capsule RX: Metoprolol Xl [Metoprolol SUCCINATE ER TAB] 50 mg PO QDAY #30 tablet
[2018-05-14] MEDS: CARDIZEM CD PO SCH (10:46)
[2018-05-14] MEDS: COZAAR PO SCH (10:46)
[2018-05-14] MEDS ORDERED: HEPARIN SUB-Q SCH (22:00)
== END 2018-05-14 12:25 | disposition home or self-care (01) | DRG 445 ==
LOC: ED 23:10 → 3A 05-13 05:53
PROVIDERS: ADMIT Internal Medicine; ATTEND Family Medicine
DX: K80.12 Calculus of gallbladder with acute and chronic cholecystitis without obstruction (principal); E87.1 Hypo-osmolality and hyponatremia; F41.9 Anxiety disorder, unspecified; I10 Essential (primary) hypertension; E66.9 Obesity, unspecified; K76.0 Fatty (change of) liver, not elsewhere classified; E86.0 Dehydration; N23 Unspecified renal colic; Z88.0 Allergy status to penicillin; Z79.899 Other long term (current) drug therapy; Z68.33 Body mass index [BMI] 33.0-33.9, adult; Z82.49 Family history of ischemic heart disease and other diseases of the circulatory system
CPT/HCPCS: 36415; 76705; 80053; 80076; 81001; 83690; 84703; 85025; 87040; G0378; J0360; J1200; J1885; J1956; J2270; J2405; J7030

== ENCOUNTER 2018-05-25 08:37 | Day surgery (SDC) | payer OTHER, SELFPAY ==
[~2018-05-25 08:37] MED LIST: NACL 0.9% 1000 ML 1,000 ML IV SCH; NEURONTIN PO SCH; VANCOMYCIN/NS 1 GM/250 ML 1 GM/250 ML BAG IV NR
[2018-05-25] MEDS ORDERED: DILAUDID IV PRN (10:11)
[2018-05-25 10:16] LABS: Albumin 4.6 g/dL (3.9-5); Bilirubin,Direct 0.3 mg/dL (0-0.2)
[2018-05-25] MEDS ORDERED: LOPRESSOR ONE (10:20)
[2018-05-25] MEDS ORDERED: VANCOMYCIN 1,250 MG in NACL 0.9% 250ML 250 ML IV SCH (10:30)
[2018-05-25] MEDS ORDERED: LACTATED RINGERS 1,000 ML IV SCH (11:00)
[2018-05-25] MEDS ORDERED: PEPCID PO NR (11:00)
[2018-05-25] MEDS ORDERED: VERSED IV NR (12:00)
[2018-05-25] MEDS ORDERED: MARCAINE 0.5% INFILTRATI ONE ×3 (13:15→14:29)
[2018-05-25] MEDS ORDERED: NACL 0.9% 250ML 250 ML ONE (13:15)
[2018-05-25] MEDS ORDERED: XYLOCAINE 1%/ EPI 1:100,000 INFILTRATI ONE ×2 (13:16→14:30)
[2018-05-25] MEDS ORDERED: SUBLIMAZE ONE (13:34)
[2018-05-25] MEDS ORDERED: DIPRIVAN 10 MG/ML IV ONE (13:36)
[2018-05-25] MEDS ORDERED: ZEMURON IV ONE (13:40)
--- NOTE | 2018-05-25 13:40 | Short Stay Summary ---
Short Stay Documentation Date of service: 05/25/18 - History H&P: obtained from office - Allergies and Medications Current Medications: Allergies acetaminophen [From Percocet] Allergy (Verified 05/17/18 12:24) Hives oxycodone [From Percocet] Allergy (Verified 05/17/18 12:24) Hives Penicillins Allergy (Verified 05/17/18 12:24) Hives sulfamethoxazole [From Bactrim] Allergy (Verified 05/17/18 12:24) SOB, rash trimethoprim [From Bactrim] Allergy (Verified 05/17/18 12:24) SOB, rash Home Medications Medication Instructions Recorded Confirmed Last Taken Type HYDROcodone/APAP 5-325 [[place] 1 each PO Q8HR PRN #12 tablet 05/14/18 05/25/18 05/15/18 09:00 Rx 5-325 mg TAB] Metoprolol Xl [Metoprolol 50 mg PO QDAY #30 tablet 05/14/18 05/25/18 05/19/18 09:00 Rx SUCCINATE ER TAB] dilTIAZem CD [Cardizem CD] 180 mg PO QDAY #30 capsule 05/14/18 05/25/18 05/25/18 07:30 Rx LORazepam [Ativan] 1 mg PO DAILY 05/17/18 05/25/18 05/25/18 07:30 History Active Medications Famotidine (Pepcid) 20 mg PO PREOP NR Stop: 05/25/18 15:00 Last Admin: 05/25/18 10:34 Dose: 20 mg Documented by: Gabapentin (Neurontin) 600 mg PO PREOP SOM Stop: 05/25/18 23:59 Last Admin: 05/25/18 09:42 Dose: 600 mg Documented by: Hydromorphone HCl (Dilaudid) 0.5 mg IV Q10MIN PRN PRN Reason: Pain , Severe (7-10) Stop: 05/25/18 20:00 Vancomycin HCl 1,250 mg/ (Sodium Chloride) 275 mls @ 166.667 mls/hr IV PREOP SOM Stop: 05/25/18 15:00 Last Admin: 05/25/18 13:04 Dose: 166.667 mls/hr Documented by: Lactated Ringer's (Lactated Ringers) 1,000 mls @ 42 mls/hr IV DIRECT SOM Last Admin: 05/25/18 10:34 Dose: 42 mls/hr Documented by: Midazolam HCl (Versed) 2 mg IV PREOP NR Stop: 05/25/18 23:59 Last Admin: 05/25/18 11:50 Dose: 2 mg Documented by: - Physical exam General appearance: no acute distress Lungs: Normal air movement Gastrointestinal: normal, no tenderness Neurological: Normal speech - Brief post op/procedure progress note Date of procedure: 05/25/18 (Dictation:[id number]) Pre-op diagnosis: choledocholithiasis Post-op diagnosis: same (and umbilical hernia) Procedure: lap paola with IOC and umbo hernia repair Anesthesia: GETA Findings: large gallbadder with multiple stones. Normal IOC Surgeon: LARRY OROZCO Brand Specialist: APPLE ESCOBAR Estimated blood loss: minimal Pathology: list (gallbladder) Specimen disposition: to lab Condition: stable - Hospital course Hospital course: uneventful - Disposition Condition at discharge: Stable Disposition: TO HOME OR SELFCARE Short Stay Discharge Plan Activity: other (no driving until cleared by surgeon) Diet: regular Wound: open to air, keep clean and dry, other (apply ice pack to wounds for 10-15min;4-5 times a day. May shower tomorrow. Pat dry wounds. ) Special Instructions: no heavy lifting (or strenuous activity for 6 weeks) Additional Instructions: NORCO GIVEN AT 355PM(1)AND 446PM(1) NO DRIVING UNTIL CLEARED BY SURGEON. WOUND:OPEN TO AIR, KEEP CLEAN AND DRY.(ICE PACK TO WOUNDS FOR 10-15 MINUTES 4-5 TIMES TWICE A DAY.) MAY SHOWER TOMORROW.PAT DRY WOUND. NO HEAVY LIFTING OR STRENEOUS ACTIVITY FOR 6 WEEKS. Follow up with: FRANCINE ENCINAS MD [Primary Care Provider] - 7 Days LARRY OROZCO MD [Staff Physician] - 14 Days Forms: Outpatient Surgery DC Inst. Prescriptions: HYDROcodone/APAP 5-325 [[place] 5-325 mg TAB] 2 each PO Q6H PRN #30 tablet PRN Reason: Pain , Severe (7-10)
[2018-05-25] MEDS ORDERED: XYLOCAINE MPF 2% ONE (13:41)
[2018-05-25] MEDS ORDERED: ROBINUL ONE ×2 (14:09→14:41)
[2018-05-25] MEDS ORDERED: DECADRON ONE (14:23)
[2018-05-25] MEDS ORDERED: NACL 0.9% IR ONE (14:31)
[2018-05-25] MEDS ORDERED: WATER FOR IRRIG STERILE IR ONE (14:31)
[2018-05-25] MEDS ORDERED: OMNIPAQUE (300 MG) IR ONE (14:31)
[2018-05-25] MEDS: NORCO 5/325 PO PRN ×2 (15:55→16:46)
[2018-05-25] MEDS ORDERED: NORMODYNE IV ONE ×2 (16:54→17:00)
[2018-05-25] MEDS ORDERED: APRESOLINE ONE (17:22)
[2018-05-25 18:03] VITALS: BP 147/94
[2018-05-25] MEDS ORDERED: APRESOLINE IV ONE (18:18)
--- NOTE | 2018-05-26 07:52 | Fluoroscopy Report ---
FLUOROSCOPY CHOLANGIOGRAM OPERATIVE History: Cholecystitis. Findings: Fluoroscopy was provided by radiology during intraoperative cholangiogram by the surgeon. 2 fluoroscopic images were saved. The images demonstrate contrast agent throughout the biliary tree and descending duodenum. Cholecystectomy changes are suspected. No biliary leak is appreciated. No evidence for choledocholithiasis. Correlate with the operative note as needed. Impression: No evidence for biliary leak or filling defect in the common bile duct.
--- NOTE | 2018-05-26 12:33 | Operative Report ---
PREOPERATIVE DIAGNOSIS: Choledocholithiasis. POSTOPERATIVE DIAGNOSIS: Choledocholithiasis. PROCEDURE: Laparoscopic cholecystectomy with intraoperative cholangiogram. ATTENDING PHYSICIAN: Anderson Andres M.D. VENDOR MANAGEMENT SPECIALIST: Dr. Mckeon. ANESTHESIA: General. ESTIMATED BLOOD LOSS: Minimal. FINDINGS: Very long gallbladder with multiple stones packed near the neck of the gallbladder. Cholangiogram was normal. Biliary tree appeared to be dilated, but had a normal taper and the contrast did exit into the duodenum. There are no signs of any inflammation or infection involving the gallbladder. SPECIMENS: Gallbladder. DRAINS: None. COMPLICATIONS: None. DISPOSITION: Stable, transferred to Recovery Room. INDICATIONS: This is a 47-year-old female who presented to the hospital with severe abdominal pain. The patient was assessed to have symptomatic choledocholithiasis. By the next morning, she clinically was much improved suggesting that she had passed the stone. Plan was for elective cholecystectomy. Procedure, risks, and benefits were explained to the patient. Risks included but were not limited to infection, bleeding, pain, injury to surrounding structures, possible need for further surgery. The patient understood and consented. On the day of surgery, her liver panel was essentially normal. OPERATIVE NOTE: The patient was brought to the operating room and placed on the table in supine position. After adequate general anesthesia was established, the patient was prepped and draped in usual sterile fashion. Timeout had been called. Antibiotics had been given. SCDs were in place. I began by placing a Veress needle in left upper quadrant about 3 fingerbreadths below the costal margin. I was able to insufflate the abdomen on the first attempt. She was noted to have a small hernia at the umbilicus, which I was going to use for my 10 mm port. Using the Optiview technique, I placed a 5 mm port in the right side of the abdomen. Please note that all incision sites had been injected with 1% lidocaine with epinephrine and 0.5% Marcaine. I entered the peritoneal cavity safely with Veress needle had been inserted. There was no injury to the underlying structures. Veress needle was removed. Under direct vision, a 10 mm port was placed through the umbilical fascial defect and then 2 more 5 mm ports were placed parallel to the subcostal margin in the right upper quadrant. The gallbladder was easily found, no signs of any infection. It was elongated with numerous stones packed near the neck of the gallbladder. I was able to easily dissect out the critical view, cystic artery and cystic duct. A clip was placed proximally in the cystic duct in relation to the gallbladder. A small opening was made in the cystic duct. Cholangiogram catheter was inserted. Cholangiogram was performed. The patient had a very long cystic duct. We had good filling of the common bile duct as well as common hepatic duct and its branches. There was initially a bit of a delay in the contrast exiting the duodenum, but it finally did and passed easily thereafter. We saw no evidence of any filling defects, nothing to suggest a stone. In the official report from Radiology, there was no evidence of any bile leak or filling defect in the common bile duct. Once we saw this, cholangiogram catheter was removed. Three clips were placed distal to where the opening was made. Cystic duct was divided as well as the cystic artery with the Harmonic scalpel. I removed the gallbladder from the bed with Harmonic scalpel. It came out intact. It was placed in the EndoCatch bag, left on the side. There was a small amount of bile spillage once we made the opening in the cystic duct. This was soaked up with a Ray-Jackson that was inserted. The bed was completely hemostatic. We saw no other abnormalities. Clips were clearly in place. There was no bleeding and we noted no bile leak. We then removed the EndoCatch bag from the umbilical port site. We had to enlarge the opening to get the EndoCatch bag out because the neck was so distended with stones. Once it was removed, we removed the Ray-Jackson as well. We then closed the fascial defect with a running 0 Vicryl stitch using an open technique. We removed the other ports. Abdomen was desufflated. Additional local was injected. Skin sites were closed with 4-0 Monocryl subcuticular stitches. Skin was cleaned and dried. Dermabond was placed. The patient tolerated the procedure well. There were no complications. All counts were correct at the end of the case. JOB# [id number] STEFANIE/JOSE E DALLAS
== END 2018-05-25 08:38 | disposition home or self-care (01) ==
LOC: OR 08:37
PROVIDERS: ATTEND Surgery
DX: K80.10 Calculus of gallbladder with chronic cholecystitis without obstruction (principal); I10 Essential (primary) hypertension; F41.9 Anxiety disorder, unspecified; Z79.899 Other long term (current) drug therapy; Z88.6 Allergy status to analgesic agent; Z88.1 Allergy status to other antibiotic agents; Z88.5 Allergy status to narcotic agent; Z88.0 Allergy status to penicillin; Z88.2 Allergy status to sulfonamides; Z98.891 History of uterine scar from previous surgery; Z98.890 Other specified postprocedural states
CPT/HCPCS: 36415; 47563; 74300; 80076; 81025; 88304; J0360; J1100; J2250; J2704; J3010; J3370; J7050; J7120; Q9967; J7030

== ENCOUNTER 2021-11-28 12:31 | Emergency (ER) | payer OTHER, SELFPAY ==
[2021-11-28 16:49] LABS: Basophils % (Auto) 1.1 % (0.0-1.8); Eosinophils # (Auto) 0.1 K/mm3 (0.0-0.4); Eosinophils % (Auto) 1.3 % (0.0-4.3); Hematocrit 39.9 % (30.3-42.9); Hemoglobin 13.2 gm/dl (10.1-14.3); Lymphocytes # (Auto) 1.8 K/mm3 (1.2-5.4); Lymphocytes % (Auto) 38.4 % (13.4-35.0); Mean Corpuscular HGB Conc 33 % (30-34); Mean Corpuscular Volume 83 fl (79-97); Monocytes # (Auto) 0.4 K/mm3 (0.0-0.8); Monocytes % (Auto) 8.3 % (0.0-7.3); Platelet Count 231 K/mm3 (140-440); Red Blood Count 4.82 M/mm3 (3.65-5.03); Red Cell Distribution Width 14.8 % (13.2-15.2)
[2021-11-28 17:15] LABS: Alanine Aminotransferase 19 units/L (7-56); Albumin 4.4 g/dL (3.9-5); BUN/Creatinine Ratio 19; Blood Urea Nitrogen 15 mg/dL (7-17); Calcium 9.7 mg/dL (8.4-10.2); Hemolysis Index 13
[2021-11-28 18:14] LABS: HCG Qualitative,Urine Negative (Negative)
[2021-11-28 18:29] LABS: WBC,Urine < 1.0 /HPF (0.0-6.0)
--- NOTE | 2021-11-28 18:44 | XRay Report ---
CHEST 1 VIEW 11/28/2021 5:38 PM INDICATION / CLINICAL INFORMATION: palpitations. COMPARISON: None available. FINDINGS: SUPPORT DEVICES: None. HEART / MEDIASTINUM: No significant abnormality. LUNGS / PLEURA: No significant pulmonary or pleural abnormality. No pneumothorax. ADDITIONAL FINDINGS: No significant additional findings. IMPRESSION: No acute abnormality. Signer Name: Fede Castorena MD Signed: 11/28/2021 6:40 PM Workstation Name: [id number]
--- NOTE | 2021-11-28 18:51 | Electrocardiograph Report ---
[facility] Test Date: 2021-11-28 Test Time: 13:47:38 Pat Name: DREAD RODRIGUEZ Department: Room: Gender: F Caterer'S Aide: [birth year] : 1970 Requested By: ELI LEDESMA Order Number: [id number] Reading MD: Ana Katz Measurements Intervals [place] Rate: 78 P: 29 CO: 150 QRS: 23 QRSD: 84 T: 26 QT: 385 QTc: 438 Interpretive Statements Sinus rhythm Probable left atrial enlargement Left ventricular hypertrophy No previous ECG available for comparison Electronically Signed On 11-28-2021 18:51:22 EDT by Ana Katz
[2021-11-28 18:52] LABS: Bilirubin,Urine Negative (Negative); Blood,Urine Negative (Negative); Color,Urine Straw (Yellow); Protein,Urine <15 mg/dL mg/dL (Negative)
--- NOTE | 2021-11-28 18:59 | Emergency Department Report ---
ED General Adult HPI - General Chief complaint: Back Pain/Injury Stated complaint: PALPITATIONS Time Seen by Provider: 11/28/21 15:45 Source: patient Mode of arrival: Ambulatory Limitations: No Limitations - History of Present Illness Initial comments: 51-year-old female with past medical history of hypertension reports to the ER with complaints of palpitations today with elevated blood pressure. Patient also reports right-sided lateral back pain. That does not radiate from her chest. Patient reports she has been experiencing this back pain for about 1 year now. Patient reports she takes her blood pressure medications but sometimes on her medication that is required to take twice a day she only takes it once a day. Patient denies any chest discomfort at this current time patient denies shortness of breath. Patient denies dizziness, weakness, fatigue, headache. Patient denies any history of heart attacks or or CVA. No other acute symptoms reported at this time. - Related Data Home Medications Medication Instructions Recorded Confirmed Last Taken LORazepam [Ativan] 1 mg PO DAILY 05/17/18 05/25/18 05/25/18 07:30 Previous Rx's Medication Instructions Recorded Last Taken Type Metoprolol Xl [Metoprolol 50 mg PO QDAY #30 tablet 05/14/18 05/19/18 09:00 Rx SUCCINATE ER TAB] dilTIAZem CD [Cardizem CD] 180 mg PO QDAY #30 capsule 05/14/18 05/25/18 07:30 Rx HYDROcodone/APAP 5-325 [[place] 2 each PO Q6H PRN #30 tablet 05/25/18 Unknown Rx 5-325 mg TAB] methOCARBAMOL [Robaxin TAB] 500 mg PO BID PRN 7 Days #14 tab 11/28/21 Unknown Rx Allergies Allergy/AdvReac Type Severity Reaction Status Date / Time acetaminophen [From Percocet] Allergy Hives Verified 11/28/21 13:02 oxycodone [From Percocet] Allergy Hives Verified 11/28/21 13:02 Penicillins Allergy Hives Verified 11/28/21 13:02 sulfamethoxazole Allergy SOB, rash Verified 11/28/21 13:02 [From Bactrim] trimethoprim [From Bactrim] Allergy SOB, rash Verified 11/28/21 13:02 ED Review of Systems ROS: Stated complaint: PALPITATIONS Other details as noted in HPI Comment: All other systems reviewed and negative Cardiovascular: other (Palpitations) Musculoskeletal: back pain (Right-sided back pain) ED Past Medical Hx - Past Medical History Previous Medical History?: Yes Hx Hypertension: Yes Hx Congestive Heart Failure: No Hx Diabetes: No Hx Asthma: No Hx COPD: No Hx HIV: No Additional medical history: gallstones - Surgical History Additional Surgical History: c- section - Social History Smoking Status: Current Every Day Smoker - Medications Home Medications: Home Medications Medication Instructions Recorded Confirmed Last Taken Type Metoprolol Xl [Metoprolol 50 mg PO QDAY #30 tablet 05/14/18 05/25/18 05/19/18 09:00 Rx SUCCINATE ER TAB] dilTIAZem CD [Cardizem CD] 180 mg PO QDAY #30 capsule 05/14/18 05/25/18 05/25/18 07:30 Rx LORazepam [Ativan] 1 mg PO DAILY 05/17/18 05/25/18 05/25/18 07:30 History HYDROcodone/APAP 5-325 [[place] 2 each PO Q6H PRN #30 tablet 05/25/18 Unknown Rx 5-325 mg TAB] methOCARBAMOL [Robaxin TAB] 500 mg PO BID PRN 7 Days #14 tab 11/28/21 Unknown Rx ED Physical Exam - General Limitations: No Limitations General appearance: alert, in no apparent distress - Head Head exam: Present: atraumatic, normocephalic - Eye Eye exam: Present: normal appearance - ENT ENT exam: Present: mucous membranes moist - Neck Neck exam: Present: normal inspection - Respiratory Respiratory exam: Present: normal lung sounds bilaterally. Absent: respiratory distress - Cardiovascular Cardiovascular Exam: Present: regular rate, normal rhythm. Absent: systolic murmur, diastolic murmur, rubs, gallop - GI/Abdominal GI/Abdominal exam: Present: soft, normal bowel sounds - Extremities Exam Extremities exam: Present: normal inspection - Back Exam Back exam: Present: normal inspection, full ROM, tenderness (Right-sided back pain mid region of right back on the lateral aspectmore muscle tenderness.). Absent: paraspinal tenderness, vertebral tenderness - Neurological Exam Neurological exam: Present: alert, oriented X3 - Psychiatric Psychiatric exam: Present: normal affect, normal mood - Skin Skin exam: Present: warm, dry, intact, normal color. Absent: rash ED Course Vital Signs 11/28/21 11/28/21 13:03 19:47 Temperature 98.6 F Pulse Rate 85 83 Respiratory 18 14 Rate Blood Pressure 194/112 152/87 [Left] O2 Sat by Pulse 97 100 Oximetry ED Medical Decision Making - Lab Data Result diagrams: 11/28/21 15:59 11/28/21 15:59 - EKG Data When compared to previous EKG there are: no significant change Interpretation: no acute changes - Radiology Data Radiology results: report reviewed [facility] [address] [place] [address] XRay Report Signed Patient: DREAD RODRIGUEZ MR#: [id number] : 1970 Acct:[id number] Age/Sex: 51 / F ADM Date: 11/28/21 Loc: ED Attending Dr: Ordering Physician: RAYMUNDO ROCHA NP Date of Service: 11/28/21 Procedure(s): XR chest 1V ap Accession Number(s): [id number] cc: RAYMUNDO ROCHA NP Fluoro Time In Minutes: CHEST 1 VIEW 11/28/2021 5:38 PM INDICATION / CLINICAL INFORMATION: palpitations. COMPARISON: None available. FINDINGS: SUPPORT DEVICES: None. HEART / MEDIASTINUM: No significant abnormality. LUNGS / PLEURA: No significant pulmonary or pleural abnormality. No p neumothorax. ADDITIONAL FINDINGS: No significant additional findings. IMPRESSION: No acute abnormality. Signer Name: Fede Castorena MD Signed: 11/28/2021 6:40 PM Workstation Name: [id number] Transcribed By: ES Dictated By: Fede Castorena MD Electronically Authenticated By: Fede Castorena MD Signed Date/Time: 11/28/211839 DD/ 39 TD/TT: - Medical Decision Making 51-year-old female past medical history hypertension reports to ER with complaints of palpitation as well as chronic right-sided back pain. No chest pain, no shortness of breath, no dizziness noted. On physical exam there is no chest wall tenderness. There is right-sided lateral back pain more muscular in nature. No pain noted on the rib cage area. Pain worse with movement. Patient received pain medicine for back pain while in ER No acute process noted in lab work. Blood work unremarkable troponin is negative. EKG with no acute changes noted. Chest x-ray unremarkable. Patient no longer reports any palpitations at this current time while in ER. Patient reports decrease in pain after receiving oral medications here in ER. Patient updated on her lab results and chest x-ray. Patient's initial blood pressure 194/112 on recheck blood pressure is 152/87. Patient informed of the importance of following her current blood pressure mary men and taking her medications as directed. Patient informed if her medicines make her feel some type of way to inform her provider of how the medications are making her feel. Patient states she does have a upcoming appointment with her animal trainer to have her medications reviewed as her current medication regiment is done by her primary care provider. Patient is stable for discharge home. No further work-up is needed at this time. Patient agrees with plan of care and verbalizes understanding. Vital Signs 11/28/21 11/28/21 13:03 19:47 Temperature 98.6 F Pulse Rate 85 83 Respiratory 18 14 Rate Blood Pressure 194/112 152/87 [Left] O2 Sat by Pulse 97 100 Oximetry Lab Results 11/28/21 11/28/21 11/28/21 Range/Units 15:59 15:59 16:50 WBC 4.6 (4.5-11.0) K/mm3 RBC 4.82 (3.65-5.03) M/mm3 Hgb 13.2 (10.1-14.3) gm/dl Hct 39.9 (30.3-42.9) % MCV 83 (79-97) fl MCH 27 L (28-32) pg MCHC 33 (30-34) % RDW 14.8 (13.2-15.2) % Plt Count 231 (140-440) K/mm3 Lymph % (Auto) 38.4 H (13.4-35.0) % [place]rill % (Auto) 8.3 H (0.0-7.3) % Eos % (Auto) 1.3 (0.0-4.3) % Baso % (Auto) 1.1 (0.0-1.8) % Lymph # (Auto) 1.8 (1.2-5.4) K/mm3 Morrill # (Auto) 0.4 (0.0-0.8) K/mm3 Eos # (Auto) 0.1 (0.0-0.4) K/mm3 Baso # (Auto) 0.0 (0.0-0.1) K/mm3 Seg Neutrophils % 50.9 (40.0-70.0) % Seg Neutrophils # 2.3 (1.8-7.7) K/mm3 Sodium 139 (137-145) mmol/L Potassium 4.0 (3.6-5.0) mmol/L Chloride 101.4 (98-107) mmol/L Carbon Dioxide 25 (22-30) mmol/L Anion Gap 17 mmol/L BUN 15 (7-17) mg/dL Creatinine 0.8 (0.6-1.2) mg/dL Estimated GFR > 60 ml/min BUN/Creatinine Ratio 19 % Glucose 93 (65-100) mg/dL Calcium 9.7 (8.4-10.2) mg/dL Total Bilirubin 0.50 (0.1-1.2) mg/dL AST 20 (5-40) units/L ALT 19 (7-56) units/L Alkaline Phosphatase 104 (35-129) units/L Troponin T < 0.010 (0.00-0.029) ng/mL NT-Pro-B Natriuret Pep 59.55 (0-900) pg/mL Total Protein 8.3 H (6.3-8.2) g/dL Albumin 4.4 (3.9-5) g/dL Albumin/Globulin Ratio 1.1 % Urine Color Straw (Yellow) Urine Turbidity Clear (Clear) Urine pH 6.0 (5.0-7.0) Ur Specific [place] 1.010 (1.003-1.030) Urine Protein <15 mg/dl (Negative) mg/dL Urine Glucose (UA) Negative (Negative) mg/dL Urine Ketones Negative (Negative) mg/dL Urine Blood Negative (Negative) Urine Nitrite Negative (Negative) Ur Reducing Substances Not Reportable Urine Bilirubin Negative (Negative) Urine Ictotest Not Reportable Urine Urobilinogen 0.0 (<2.0) mg/dL Ur Leukocyte Esterase Negative (Negative) Urine WBC (Auto) < 1.0 (0.0-6.0) /HPF Urine RBC (Auto) 3.0 (0.0-6.0) /HPF U Epithel Cells (Auto) 2.0 (0-13.0) /HPF Urine HCG, Qual Negative (Negative) Critical care attestation.: If time is entered above; I have spent that time in minutes in the direct care of this critically ill patient, excluding procedure time. ED Disposition Clinical Impression: Palpitation, Upper back pain on right side, Muscle pain Disposition: HOME / SELF CARE / HOMELESS Is pt being admited?: No Condition: Stable Instructions: Acute Back Pain, Adult, Musculoskeletal Pain, Palpitations Prescriptions: methOCARBAMOL [Robaxin TAB] 500 mg PO BID PRN 7 Days #14 tab PRN Reason: Muscle Spasm Referrals: MIAH REYEZ MD [Staff Physician] - 3-5 Days Time of Disposition: 18:59
[2021-11-28 19:51] VITALS: BP 152/87
== END 2021-11-28 19:48 | disposition home or self-care (01) ==
LOC: ED 12:31
DX: M54.9 Dorsalgia, unspecified (principal); M79.10 Myalgia, unspecified site; R00.2 Palpitations; I10 Essential (primary) hypertension; F17.200 Nicotine dependence, unspecified, uncomplicated; Z88.0 Allergy status to penicillin; Z91.09 Other allergy status, other than to drugs and biological substances; Z79.899 Other long term (current) drug therapy
CPT/HCPCS: 36415; 71045; 80053; 81001; 81025; 83880; 84484; 85025; 93005; 99284